=== PATIENT | male | born 1975 | race Caucasian/White ===

== ENCOUNTER 2017-02-09 20:11 | Observation (INO) | payer OTHER ==
[~2017-02-09] VITALS: Ht 177.8 cm; Wt 54.2 kg
[~2017-02-09 20:11] MED LIST: ACCU-CHEK FASTCLIX L XX; AMITRIPTYLIN25 MG PO; ASPIRIN LOW81 M1 PO; CREON12000 UNT PO; GABAPENTIN800 MG PO; LAMICTAL100 MG PO; LEVEMIR1000 UNITS SC; LORTAB 7.5-3251 TAB PO; METFORMIN HCL1000 MG PO; NOVOLOG FLEXPEN SC; ONE TOUCH ULTRA 50 XX; OXYCODONE HCL15 MG PO; PEPCID20 MG PO; TIZANIDINE HCL4 MG PO; ZOFRAN ODT4 MG PO; ZOFRAN4 MG/TAB PO
--- NOTE | 2017-02-09 20:35 | NUR ---
ACCUCHECK COMPLETED, HIGH
--- NOTE | 2017-02-09 20:50 | NUR ---
DR SRINIVASAN AT BEDSIDE.
[2017-02-09 21:31] LABS: URINE BILIRUBIN - DIPSTICK NEGATIVE (NEGATIVE); URINE BLOOD DIPSTICK NEGATIVE (NEGATIVE); URINE CLARITY CLEAR; URINE COLOR YELLOW; URINE GLUCOSE - DIPSTICK >=1000 mg/dL (NEGATIVE); URINE KETONE NEGATIVE (NEGATIVE); URINE LEUK ESTERASE NEGATIVE (NEGATIVE); URINE NITRITE - DIPSTICK NEGATIVE (Negative); URINE PH 5.5 (4.5-8.0); URINE PROTEIN - DIPSTICK NEGATIVE (NEG-TRACE); URINE SPECIFIC GRAVITY <=1.005; URINE UROBILINOGEN - DIPSTICK 0.2 E.U./dL (0.2)
[2017-02-09 21:37] LABS: HEMATOCRIT 36.1 % (39.0-50.0); HEMOGLOBIN 12.5 g/dl (14.0-18.0); IMMATURE GRANULOCYTES 0.9 % (0.0-1.0); MEAN CELL VOLUME 88.9 fL CALC (80.0-100.0); MEAN CORPUSCULAR HGB 30.8 pG CALC (26.0-32.0); MEAN CORPUSCULAR HGB CONC 34.6 g/L CALC (32.0-36.0); NEUT# 2.97 thou/uL (1.82-7.42); RED BLOOD COUNT 4.06 mill/uL (4.70-6.10); RED CELL DISTRI WIDTH 12.9 % (11.5-15.5)
[2017-02-09] MEDS ORDERED: GABAPENTIN800 MG PO (21:52)
[2017-02-09] MEDS ORDERED: LANTUS SOLOSTAR SC (21:54)
[2017-02-09] MEDS ORDERED: HUMALOG100 UNIT/M SC (21:55)
[2017-02-09 21:56] LABS: ALBUMIN 3.4 g/dL (3.2-5.0); ALKALINE PHOSPHATASE 264 u/l (38-126); ANION GAP 18 (6-22 (CALC)); BILIRUBIN, TOTAL 0.3 mg/dL (0.0-1.4); BUN 6 mg/dL (9-20); BUN/CREATININE RATIO 9 (12-20 (CALC)); CALCIUM 8.2 mg/dL (8.4-10.2); CARBON DIOXIDE 18 mmol/l (22-30); CHLORIDE 99 mmol/l (95-108); CREATININE 0.7 mg/dL (0.7-1.3); GFR > 60 ML/MIN (>=60 (CALC)); GFR FOR AFR.AMER. > 60 ML/MIN (>=60 (CALC)); POTASSIUM 3.7 mmol/l (3.5-5.1); SGOT/AST 48 u/l (17-59); SGPT/ALT 61 u/l (21-72); SODIUM 131 mmol/l (137-146); TOTAL PROTEIN 6.4 g/dL (6.3-8.2)
[2017-02-09 22:08] LABS: GLUCOSE 798 mg/dL (75-110)
--- NOTE | 2017-02-09 22:08 | NUR ---
LAB REPORTED GLUCOSE 798, DR SRINIVASAN INFORMED.
--- NOTE | 2017-02-09 23:09 | NUR ---
REPEAT ACCUCHECK 438 DR SRINIVASAN INFORMED.
--- NOTE | 2017-02-10 00:09 | NUR ---
REPORT TO [facility]
[2017-02-10 00:47] VITALS: BP 91/61
--- NOTE | 2017-02-10 00:47 | NUR ---
PT TO RM 289 WITH RN AND DCSO.
--- NOTE | 2017-02-10 00:47 | NUR ---
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
[2017-02-10 03:34] VITALS: BP 95/62
--- NOTE | 2017-02-10 04:28 | NUR ---
PT APPEARS TO BE SLEEPING WITH GUARD AT BEDSIDE;WOKE PT TO ADMINISTER SCHEDULED MEDICATION;ACCUCHECK OF 192 AT THIS TIME;PT DENIES ANY PAIN OR DISCOMFORTS;BED IN LOWEST POSITION WITH CALL LIGHT IN REACH;WILL CONTINUE TO MONITOR
--- NOTE | 2017-02-10 07:00 | NUR ---
REPORT RECIEVED FROM CLAUDY BRAN; PT RESTING IN BED WITH EYES CLOSED; NO S/S OF DISTRESS NOTED; GAURD AT BEDSIDE; CALL LIGHT WITHIN REACH; WILL CONTINUET O MONITOR
[2017-02-10 08:27] LABS: CHOLESTEROL HDL RATIO 4.1 (<4.4 (CALC))
[2017-02-10 08:36] VITALS: BP 101/65
[2017-02-10] MEDS ORDERED: NOVOLOG100 UNIT/M SC (10:11)
[2017-02-10] MEDS ORDERED: LEVEMIR100 UNIT/M SC (10:11)
--- NOTE | 2017-02-10 11:30 | NUR ---
PT RESTING IN BED; NO S/S OF DISTRESS NOTED; MELI AT BEDSIDE; PT BS READING 148; DR DUTTA NOTIFIED AND ORDERS TO HOLD 10 UNITS OF NOVOLOG GIVEN; WILL CONTINUE TO MONITOR
--- NOTE | 2017-02-10 14:57 | NUR ---
Discharge instructions given. Patient verbalizes understanding of same. [facility] All belongings sent with pt.
== END 2017-02-10 14:45 | DRG 638 ==
LOC: ENPENDDIS → ED 20:11 → ED-I 22:50 → ED 23:18 → MS2 23:19
PROVIDERS: Internal Medicine; ADMIT Internal Medicine; ATTEND Internal Medicine
DX: E11.65 Type 2 diabetes mellitus with hyperglycemia (principal); K86.0 Alcohol-induced chronic pancreatitis; E11.40 Type 2 diabetes mellitus with diabetic neuropathy, unspecified; C34.90 Malignant neoplasm of unspecified part of unspecified bronchus or lung; F17.210 Nicotine dependence, cigarettes, uncomplicated; C14.0 Malignant neoplasm of pharynx, unspecified; Z91.14 Patient's other noncompliance with medication regimen; Z79.4 Long term (current) use of insulin
CPT/HCPCS: G0378

== ENCOUNTER 2017-03-30 20:11 | Emergency (ER) | payer OTHER ==
[~2017-03-30] VITALS: Ht 177.8 cm; Wt 54.0 kg
[~2017-03-30 20:11] MED LIST changes: +HUMALOG100 UNIT/M SC; +LANTUS SOLOSTAR SC; +LEVEMIR100 UNIT/M SC; +NOVOLOG100 UNIT/M SC
[2017-03-30] MEDS ORDERED: LANTUS100 UNIT/M SC (20:26)
[2017-03-30] MEDS ORDERED: NOVOLIN R100 UNIT/M SC (20:28)
[2017-03-30 21:18] LABS: HEMATOCRIT 34.8 % (39.0-50.0); HEMOGLOBIN 12.4 g/dl (14.0-18.0); IMMATURE GRANULOCYTES 0.7 % (0.0-1.0); MEAN CELL VOLUME 87.7 fL CALC (80.0-100.0); MEAN CORPUSCULAR HGB 31.2 pG CALC (26.0-32.0); MEAN CORPUSCULAR HGB CONC 35.6 g/L CALC (32.0-36.0); NEUT# 3.64 thou/uL (1.82-7.42); RED BLOOD COUNT 3.97 mill/uL (4.70-6.10); RED CELL DISTRI WIDTH 12.6 % (11.5-15.5)
[2017-03-30 21:30] LABS: ALBUMIN 4.1 g/dL (3.2-5.0); ALKALINE PHOSPHATASE 186 u/l (38-126); ANION GAP 15 (6-22 (CALC)); BILIRUBIN, TOTAL 0.7 mg/dL (0.0-1.4); BUN 9 mg/dL (9-20); BUN/CREATININE RATIO 13 (12-20 (CALC)); CALCIUM 8.9 mg/dL (8.4-10.2); CARBON DIOXIDE 25 mmol/l (22-30); CHLORIDE 95 mmol/l (95-108); CREATININE 0.6 mg/dL (0.7-1.3); GFR > 60 ML/MIN (>=60 (CALC)); GFR FOR AFR.AMER. > 60 ML/MIN (>=60 (CALC)); POTASSIUM 3.6 mmol/l (3.5-5.1); SGOT/AST 30 u/l (17-59); SGPT/ALT 57 u/l (21-72); SODIUM 131 mmol/l (137-146); TOTAL PROTEIN 7.4 g/dL (6.3-8.2)
[2017-03-30 21:32] LABS: GLUCOSE 557 mg/dL (75-110)
[2017-03-30 23:25] VITALS: BP 103/76
== END 2017-03-30 23:24 | DRG 638 ==
LOC: ED 20:11
PROVIDERS: Emergency Medicine
DX: E11.65 Type 2 diabetes mellitus with hyperglycemia (principal); C34.90 Malignant neoplasm of unspecified part of unspecified bronchus or lung; C14.0 Malignant neoplasm of pharynx, unspecified; F17.210 Nicotine dependence, cigarettes, uncomplicated; Z91.14 Patient's other noncompliance with medication regimen; Z79.4 Long term (current) use of insulin

== ENCOUNTER 2017-08-12 15:16 | Observation (INO) | payer OTHER ==
[~2017-08-12] VITALS: Ht 177.8 cm; Wt 48.0 kg
[~2017-08-12 15:16] MED LIST changes: +LANTUS100 UNIT/M SC; +NOVOLIN R100 UNIT/M SC
--- NOTE | 2017-08-12 15:42 | NUR ---
PATIENT AMBULATED TO ROOM WITH STEADY GAIT AND PHYSICIAN AT BEDSIDE FOR EVALUATION
[2017-08-12 16:02] LABS: HEMATOCRIT 37.9 % (39.0-50.0); IMMATURE GRANULOCYTES 0.8 % (0.0-1.0); MEAN CELL VOLUME 89.2 fL CALC (80.0-100.0); MEAN CORPUSCULAR HGB 30.6 pG CALC (26.0-32.0); MEAN CORPUSCULAR HGB CONC 34.3 g/L CALC (32.0-36.0); NEUT# 6.53 thou/uL (1.82-7.42); RED BLOOD COUNT 4.25 mill/uL (4.70-6.10); RED CELL DISTRI WIDTH 12.3 % (11.5-15.5)
--- NOTE | 2017-08-12 16:02 | NUR ---
PATIENT MEDICATED PER MD ORDER. TOLERATING IV WELL. AWAITING RESULTS, CALL LIGHT WITHIN REACH. VISITORS AT BEDSIDE, WILL CONTINUE TO MONITOR.
[2017-08-12 16:29] LABS: ALBUMIN 3.5 g/dL (3.2-5.0); ALKALINE PHOSPHATASE 552 u/l (38-126); ANION GAP 18 (6-22 (CALC)); BILIRUBIN, TOTAL 0.3 mg/dL (0.0-1.4); BUN 6 mg/dL (9-20); BUN/CREATININE RATIO 10 (12-20 (CALC)); CARBON DIOXIDE 23 mmol/l (22-30); CHLORIDE 98 mmol/l (95-108); CREATININE 0.6 mg/dL (0.7-1.3); GFR > 60 ML/MIN (>=60 (CALC)); GFR FOR AFR.AMER. > 60 ML/MIN (>=60 (CALC)); MAGNESIUM 1.7 mg/dL (1.6-2.3); POTASSIUM 4.7 mmol/l (3.5-5.1); SGOT/AST 44 u/l (17-59); SGPT/ALT 48 u/l (21-72); SODIUM 133 mmol/l (137-146); TOTAL PROTEIN 6.8 g/dL (6.3-8.2)
[2017-08-12 16:39] LABS: GLUCOSE 696 mg/dL (75-110)
[2017-08-12 16:43] LABS: MYOGLOBIN 16 ng/mL (0 - 121)
--- NOTE | 2017-08-12 17:14 | NUR ---
SBAR PRINTED TO FLOOR
--- NOTE | 2017-08-12 17:15 | NUR ---
PATIENT RESTING ON STRETCHER WITH IN SIGNS OF DISTRESS, INFORMED ABOUT ADMIT. DISCUSSED WITH SO, VERBAL UNDERSTANDING.
--- NOTE | 2017-08-12 17:17 | NUR ---
PATIENT REPORTS NOT HAVING ANY HOME MEDS FOR APPROX. 2 MONTHS.
--- NOTE | 2017-08-12 17:33 | NUR ---
ATTEMPT MADE TO CALL REPORT NO ANSWER.
[2017-08-12 17:36] LABS: URINE BILIRUBIN - DIPSTICK NEGATIVE (NEGATIVE); URINE BLOOD DIPSTICK NEGATIVE (NEGATIVE); URINE COLOR YELLOW; URINE GLUCOSE - DIPSTICK >=1000 mg/dL (NEGATIVE); URINE KETONE NEGATIVE (NEGATIVE); URINE LEUK ESTERASE NEGATIVE (NEGATIVE); URINE NITRITE - DIPSTICK NEGATIVE (Negative); URINE PROTEIN - DIPSTICK NEGATIVE (NEG-TRACE); URINE UROBILINOGEN - DIPSTICK 0.2 E.U./dL (0.2)
[2017-08-12 17:37] LABS: URINE CLARITY CLEAR
[2017-08-12 17:40] LABS: BARBITURATES NEGATIVE (NEGATIVE); COCAINE NEGATIVE (NEGATIVE); METHADONE NEGATIVE (NEGATIVE); OXCYCODONE NEGATIVE (NEGATIVE); TETRAHYDROCANNABIONOL NEGATIVE (NEGATIVE); TRICYLIC ANTIDEPRESSANTS NEGATIVE (NEGATIVE)
--- NOTE | 2017-08-12 17:49 | NUR ---
SECOND ATTEMPT MADE TO GIVE REPORT, SPOKE TO MARTHA. REPORTS NURSE UNABLE TO TAKE REPORT AT THIS TIME.
--- NOTE | 2017-08-12 18:23 | NUR ---
REPORT GIVEN TO JERMAINE CORNELIUS.
--- NOTE | 2017-08-12 18:30 | NUR ---
PATIENT TRANSPORTED TO [facility] WITH TELE IN PLACE VIA STRETCHER. BEDSIDE REPORT GIVEN TO ASHLI, CARE RELINQUISHED.
--- NOTE | 2017-08-12 18:48 | NUR ---
REPORT RECEIVED FROM SHAMIR NEIL ARRIVED ON UNIT @ 1825, ALERT AND ORIENTED, APPEARS VERY EMACIATED, C/O BEING THIRSTY, ORIENTED TO ROOM AND CALL LUNA, TELE MONITOR IN PLACE, IV CATHETER IN PLACE TO LEFT NECK, SPEECH GARBLED, DENIES PAIN. WILL CONTINUE TO MONITOR AND REPORT TO HS SHIFT.
[2017-08-12 19:15] VITALS: BP 113/78
--- NOTE | 2017-08-12 19:45 | NUR ---
PT RESTING IN BED WITH EYES CLOSED. PT WOKE FOR ASSESSMENT. PT SPEECH IS GARBLED. PT ALERT AND ORIENTED. RESP EVEN AND UNLABORED. NO DISTRESS NOTED. LUNGS CLEAR BILAT, DIMINISHED IN BASES. ABD SOFT, BOWEL SOUNDS PRESENT. TELE IN PLACE. IV LEFT NECK PATENT. PEDAL PULSES PALPATED BILAT. PT STATES GENERALIZED PAIN. NOTIFIED; NEW ORDER RECIEVED. PT REPOSTIONED FOR COMFORT. FREQUENT ROUNDS MADE. CALL LIGHT WITHIN REACH.
--- NOTE | 2017-08-12 20:20 | NUR ---
LORTAB NOT GIVEN. DR CALLED; NEW ORDER RECIEVED. DR NOTIFIED OF BS:[id number]. NEW ORDER RECIEVED.
--- NOTE | 2017-08-12 22:50 | NUR ---
PT STATES HISTORY OF MRSA; 5 YEARS AGO. PRECAUTIONS HUNG. NARE CULTURE OBTAINED;SENT TO LAB.
[2017-08-13] VITALS (7 sets, daily range): BP systolic 95–119; BP diastolic 65–85
--- NOTE | 2017-08-13 00:50 | NUR ---
PT APPEARS TO BE SLEEPING AT THIS TIME WITH EYES CLOSE. NO DISTRESS NOTED. RESP EVEN AND UNLABORED. TELE IN PLACE. CALL LIGHT WITHIN REACH.
--- NOTE | 2017-08-13 04:50 | NUR ---
PT APPEARS TO BE SLEEPING. NO DISTRESS NOTED. TELE IN PLACE. ASSESSMENT UNCHANGED. IV PATENT. CALL LIGHT WITHIN REACH.
--- NOTE | 2017-08-13 05:57 | NUR ---
CIGARETTE SMOKE SMELL IN PT ROOM; STRONGER IN BATHROOM. PT STATES HE DOES SMOKE, BUT DOES NOT HAVE ANY CIGARETTES IN THE ROOM. PT DENIES SMOKING IN THE ROOM. GIFT SHOP MANAGER NOTIFIED OF SITUATION.
[2017-08-13 06:16] LABS: HEMATOCRIT 34.7 % (39.0-50.0); HEMOGLOBIN 11.9 g/dl (14.0-18.0); IMMATURE GRANULOCYTES 0.5 % (0.0-1.0); MEAN CELL VOLUME 89.9 fL CALC (80.0-100.0); MEAN CORPUSCULAR HGB 30.8 pG CALC (26.0-32.0); MEAN CORPUSCULAR HGB CONC 34.3 g/L CALC (32.0-36.0); NEUT# 5.42 thou/uL (1.82-7.42); RED BLOOD COUNT 3.86 mill/uL (4.70-6.10); RED CELL DISTRI WIDTH 12.1 % (11.5-15.5)
[2017-08-13 06:25] LABS: BUN 7 mg/dL (9-20); BUN/CREATININE RATIO 16 (12-20 (CALC)); CALCIUM 8.9 mg/dL (8.4-10.2); CARBON DIOXIDE 24 mmol/l (22-30); CREATININE 0.4 mg/dL (0.7-1.3); GFR > 60 ML/MIN (>=60 (CALC)); GFR FOR AFR.AMER. > 60 ML/MIN (>=60 (CALC)); GLUCOSE 83 mg/dL (75-110); MAGNESIUM 1.6 mg/dL (1.6-2.3); SODIUM 141 mmol/l (137-146)
[2017-08-13 06:31] LABS: ANION GAP 12 (6-22 (CALC)); CHLORIDE 109 mmol/l (95-108)
--- NOTE | 2017-08-13 07:00 | NUR ---
SHIFT CHANGE FROM JACQUELINE, PT SLEEPING BUT AROUSES TO VERBAL STIMULI, FLAT EFFECT AND APPEARS DISINTERESTED, IVF INFUSING, TELE MONITOR IN PLACE, CALL LUNA IN REACH.
--- NOTE | 2017-08-13 08:00 | NUR ---
AMADO FROM ED CALLED, REPORTED ABNORMAL RHYTHM FLUCTUATING FROM 58-160'S BUT REGULAR AND NOT SUSTAINING, PRINTED REPORT SENT TO UNIT, WILL BE NOTIFIED. PT RELAXED AND EATING AT THIS ITME.
--- NOTE | 2017-08-13 09:30 | NUR ---
BLOOD GLUCOSE LEVEL @ 0922 = [phone]
--- NOTE | 2017-08-13 10:13 | NUR ---
ASSESSING PT, OBSERVED LOOSE BANDAID TO RIGHT NECK WHERE WOUND WITH LARGE AMOUNT PURULENT DRAINAGE SEEN, PT SLAPPED AWAY MY HAND AND EXCLAIMED TO LEAVE IT ALONE WHEN I INQUIRED OF PT ABOUT IT. HE STILL HASNT RESPONDED TO MY QUESTION. DR DUTTA AND JACKELINE ROUNDING SAME TIME, I MAINE THEIR ATTENTION TO WOUND, CULTURE ORDERED AND OBTAINED. PT WAS HOSTILE BUT I SPOKE TO HEM REASSURINGLY INFORMING HIM WE ARE NOT HERE TO BE JUDGMENTAL OF HIM BUT TO TREAT HIM ANY OTHER PERSON. HIS DISPOSITION CHANGED THEN AND HE BECAME COOPERATIVE. WOUND WAS CLEANED WITH 0.9 NS AND NEW DRESSING APPLIED. DESCRIPTION OF WOUND MAY BE FOUND IN WOUND DOCUMENTATION SECTION.
--- NOTE | 2017-08-13 10:46 | NUR ---
MARCEL FROM DEPT ADVISED PROCESSING FOR TRANSFER TO [facility] IS IN PROGRESS AT THIS TIME, PT INFORMED.
--- NOTE | 2017-08-13 19:15 | NUR ---
PT RESTING IN BED WATCHING TV. RESP EVEN AND UNLABORED. LUNGS DIMINISHED THROUGHOUT. NO DISTRESS NOTED. TELE IN PLACE. ABD SOFT, BOWEL SOUNDS PRESENT. PEDAL PULSES PALPATED BILAT. IV LEJ PATENT, NO REDNESS OR EDEMA NOTED. BANDAID ON RT SIDE OF NECK, CDI. PT REPOSITIONED FOR COMFORT. FREQUENT ROUNDS MADE. CALL LIGHT WITHIN REACH.
--- NOTE | 2017-08-13 19:51 | NUR ---
REPORT GIVEN TO BRITT CRUZ) AT LOCATED WITHIN [facility], PT HANDED OVER TO YAMILETH PHILLIPS.
--- NOTE | 2017-08-13 22:26 | NUR ---
Discharge instructions given. Patient verbalizes understanding of same. Discharged in stable condition via Medical Transport to [facility]. All belongings sent with pt.
== END 2017-08-13 22:25 | DRG 637 ==
LOC: ED 15:16 → ED-I 16:59 → ED 17:15 → MS2 17:16
PROVIDERS: Emergency Medicine; Nurse Practitioner Family; ADMIT Internal Medicine; ATTEND Internal Medicine
DX: E11.65 Type 2 diabetes mellitus with hyperglycemia (principal); E43 Unspecified severe protein-calorie malnutrition; C79.9 Secondary malignant neoplasm of unspecified site; E11.649 Type 2 diabetes mellitus with hypoglycemia without coma; C14.0 Malignant neoplasm of pharynx, unspecified; K86.0 Alcohol-induced chronic pancreatitis; C34.90 Malignant neoplasm of unspecified part of unspecified bronchus or lung; G89.3 Neoplasm related pain (acute) (chronic); Z68.1 Body mass index [BMI] 19.9 or less, adult; F17.210 Nicotine dependence, cigarettes, uncomplicated; Z79.4 Long term (current) use of insulin; Z91.14 Patient's other noncompliance with medication regimen
CPT/HCPCS: G0378

== ENCOUNTER 2017-11-07 10:49 | Inpatient (IN) | payer OTHER ==
[~2017-11-07] VITALS: Ht 177.8 cm; Wt 48.0 kg
[2017-11-07] VITALS (9 sets, daily range): BP systolic 96–116; BP diastolic 71–83
--- NOTE | 2017-11-07 11:01 | NUR ---
PATIENT TO ROOM VIA EMS AND PHYSICIAN NOTIFIED OF PATIENT STATUS
--- NOTE | 2017-11-07 11:15 | NUR ---
PT ARRIVED WITH EMS IV & 1L NACL STARTED. PT HAS HOARSE VOICE. C/O RIGHT FLANK PAIN. HX OF CANCER. SMOKES 1.5PACKS OF CIGARETTER PER DAY. PT DENIES ALCOHOL USE BUT SMELLS OF ALCOHOL. PT DENIES ABD PAIN. ABD SOFT/NONTENDER. ACTIVE BS. STRONG/EQUAL PULSES, GOOD CAP REFILL. EYES PERRLA. NEUROS INTACT. CARDIAC NSR. LUNG SOUNDS CLEAR ON LEFT, DIMINISHED ON RIGHT. BREATHING IS EVEN/UNLABORED. PT GOING THROUGH SCRATCH OFF TICKETS TO SEE IF HE WON ANYTHING. PT LAYING IN BED, NO S/S OF DISTRESS OBSERVED. PT STATES HIS SUGAR GETS HIGH & "ONLY TAKES INSULIN EVERY ONCE IN A WHILE". ACCUCHECK COMPLETED.
[2017-11-07 11:26] LABS: HEMATOCRIT 38.4 % (39.0-50.0); HEMOGLOBIN 13.2 g/dl (14.0-18.0); IMMATURE GRANULOCYTES 0.4 % (0.0-1.0); MEAN CELL VOLUME 86.1 fL CALC (80.0-100.0); MEAN CORPUSCULAR HGB 29.6 pG CALC (26.0-32.0); MEAN CORPUSCULAR HGB CONC 34.4 g/L CALC (32.0-36.0); NEUT# 7.6 thou/uL (1.82-7.42); RED BLOOD COUNT 4.46 mill/uL (4.70-6.10); RED CELL DISTRI WIDTH 12.7 % (11.5-15.5)
[2017-11-07 11:42] LABS: ALBUMIN 4.1 g/dL (3.2-5.0); ALKALINE PHOSPHATASE 403 u/l (38-126); BILIRUBIN, TOTAL 0.5 mg/dL (0.0-1.4); BUN 20 mg/dL (9-20); BUN/CREATININE RATIO 35 (12-20 (CALC)); CARBON DIOXIDE 23 mmol/l (22-30); CREATININE 0.6 mg/dL (0.7-1.3); GFR > 60 ML/MIN (>=60 (CALC)); GFR FOR AFR.AMER. > 60 ML/MIN (>=60 (CALC)); LIPASE 52 u/l (23-300); POTASSIUM 4.8 mmol/l (3.5-5.1); SGOT/AST 51 u/l (17-59); SGPT/ALT 76 u/l (21-72); TOTAL PROTEIN 8.1 g/dL (6.3-8.2)
[2017-11-07 11:43] LABS: ANION GAP 23 (6-22 (CALC)); CHLORIDE 91 mmol/l (95-108); SODIUM 132 mmol/l (137-146)
--- NOTE | 2017-11-07 12:16 | NUR ---
PATIENT RESTING AWAITING LAB AND RADIOLOGY RESULTS
--- NOTE | 2017-11-07 12:20 | NUR ---
PHARM CALLED FOR INSULIN DRIP.
--- NOTE | 2017-11-07 12:33 | NUR ---
DIFFICULTY ESTABLISHING A 2ND IV. PTS VEINS ARE VERY HARD. CHARGE NURSE ATTEMPTING.
--- NOTE | 2017-11-07 12:50 | NUR ---
2ND IV ESTABLISHED IN RAC. INSULIN DRIP & LR STARTED. MD IN ROOM DISCUSSING TEST RESULTS & POC. PT ACKNOWLEDGES ADMIT.
--- NOTE | 2017-11-07 13:04 | NUR ---
PT UNCOOPERATIVE WHEN TRYING TO DO AN EKG. PT PLAYING WITH HIS SCRATCH OFF LOTTO, REFUSING TO LAY REQUESTED. AWARE.
--- NOTE | 2017-11-07 13:09 | NUR ---
SBAR PRINTED TO FLOOR
--- NOTE | 2017-11-07 13:23 | NUR ---
RECVING JERMAINE MALDONADO.
--- NOTE | 2017-11-07 13:24 | NUR ---
PT HAS NOT BEEN ABLE TO GIVE A URINE SAMPLE SINCE ARRIVAL.
--- NOTE | 2017-11-07 13:49 | NUR ---
Admission Note Report Given to: CINDY Transported by: Wheelchair X Stretcher Transported with: X Nurse Transporter X Patent IV O2 X Background Check Coordinator ICU 8
--- NOTE | 2017-11-07 14:00 | NUR ---
PT ADMITTED TO ICU BED 8 VIA STRETCHER, PT STOOD OFF STRECTHER AND ONTO STANDING SCALE WEIGHT OBTAINED, THEN INTO BED, ADMISSION ASSESSMENT COMPLETED, PT DIFFICULT TO UNDERSTAND AT TIMES RELATED TO SPEAKS VERY SOFTLY WITH MINIMAL LIP MOVEMENT, PT STATES HE HAS A HARD TIME SPEAKING LOUDLY RELATED TO THROAT CANCER, LUNGS CLEAR WITH NO SHORTNESS OF BREATH OR DISTRESS NOTED, PULSE OX 99% ON ROOM AIR, STATES HE HAS O2 AT HOME BUT DECLINES USAGE, PT IS VERY THIN AND CACHEXIC LOOKING, ABD SOFT AND BOWEL SOUNDS ACTIVE PT STATES LAST BM THIS AM, NO EDEMA NOTED PT IS 5"10 STATED HEIGHT AND 106 lbs. SKIN WARM DRY AND INTACT PT HAS 1IN NUDULE NOTED TO LEFT CHEEK NEAR NOSE. NO REDNESS OR DRAINAGE NOTED FROM SITE, 20G IV ACCESS IN RAC WITH IVF AND INSULIN GTT, PT ADMITS TO BEING NON COMPLIANT WITH DIABETES AT HOME ALSO STATES THAT HE HAS LUNG CANCER AND THROAT CANCER WITH NO TREATMENT, ORIENTED TO ROOM AND UNIT, ALL MONITORIG EQUIPMENT EXPLAINED PRIOR TO APPLICATION, PT ALSO AWARE OF NEED FOR HOURLY ACCU CHECKS RELATED TO INSULIN GTT. CALL LUNA WITHIN REACH, SAFETY MEASURES INTRODUCED, WILL CONTINUE TO MONITOR.
--- NOTE | 2017-11-07 14:18 | NUR ---
PT TRANSPORTED TO ICU #8 BY STRETCHER IN STABLE CONDITINO. PT AMBULATED TO SCALE THEN BED. PTS R A/C IV WAS CRIMPED UPON ARRIVAL BUT WAS SAVABLE.
--- NOTE | 2017-11-07 14:45 | NUR ---
LINENS CHANGED RELATED TO PT SPILLED WATER IN BED, CALL LUNA WITHIN REACH
--- NOTE | 2017-11-07 15:16 | NUR ---
INSULIN GTT PLACED ON HOLD RELATED TO BS 153 AFTER 1 HR ON AND PT NPO, CALL LUNA WITHIN REACH, AWAITING MD ROUND FOR FURTHER ORDERS.
--- NOTE | 2017-11-07 16:37 | NUR ---
PT DOZING INTERMITTENLY AND WATCHING TELEVISION, OFFERS NO NEW COMPLAINTS OTHER THAN TO ASK FOR FOOD, EDUCATED REGARDIGN NPO STATUS AND WILL DISCUSS DIET DURING MD ROUNDS
--- NOTE | 2017-11-07 16:54 | NUR ---
BLADDER SCAN PERFORMED WITH >999 mL NOTED, PT VOIDS 625 ml AND POST VOID RESIDUAL WAS 367 ML, ON UNIT.
--- NOTE | 2017-11-07 17:56 | NUR ---
PT REQUESTING MEDICATION FOR PAIN, AWARE AND NEW ORDERS REC'D WILL MEDICATE ORDERED.
--- NOTE | 2017-11-07 18:05 | NUR ---
MEDICATED FOR PAIN ORDERED, OOB TO [facility] WITH STAND BY ASSIST
--- NOTE | 2017-11-07 18:19 | NUR ---
PT OOB TO [facility] STAND BY ASSIST, CONTINENT OF VERY LARGE FORMED PALE GUERRERO STOOL, PROVIDED OWN MANDO CARE AND BACK TO BED, WARM BLANKETS APPLIED PER PT REQUEST FOR COMFORT, CALL LUNA WITHIN REACH, TOLERATING DIET WITH INTAKE NOTED TO BE OF SOFT FOODS, WILL CONTINUE TO MONITOR
[2017-11-07 18:38] LABS: URINE BILIRUBIN - DIPSTICK NEGATIVE (NEGATIVE); URINE BLOOD DIPSTICK NEGATIVE (NEGATIVE); URINE COLOR YELLOW; URINE GLUCOSE - DIPSTICK >=1000 mg/dL (NEGATIVE); URINE KETONE TRACE mg/dL (NEGATIVE); URINE LEUK ESTERASE NEGATIVE (NEGATIVE); URINE NITRITE - DIPSTICK NEGATIVE (Negative); URINE PROTEIN - DIPSTICK NEGATIVE (NEG-TRACE); URINE UROBILINOGEN - DIPSTICK 0.2 E.U./dL (0.2)
[2017-11-07 18:42] LABS: URINE CLARITY CLEAR
--- NOTE | 2017-11-07 19:30 | NUR ---
difficult to fully arouse. no apparent pain. pt is extremely emaciated. teletypesetter monitor shows sinus rhythm inverted p waves. #20 rac ns infusing @ 200cchr. voids per urinal. fall precautions cont.
--- NOTE | 2017-11-07 20:40 | NUR ---
to ct per wc.
--- NOTE | 2017-11-07 21:10 | NUR ---
returned from ct. amb to br x1 assist then to bed. lance well. requested pain med to be brought to him when due. instructed pt to call this sql report writer when due. pt verbalized understanding. snack given per request.
--- NOTE | 2017-11-07 22:00 | NUR ---
eyes closed. no distress.
[2017-11-08] VITALS (16 sets, daily range): BP systolic 84–131; BP diastolic 56–80
--- NOTE | 2017-11-08 00:01 | NUR ---
eyes closed. no distress. patient monitor shows sinus rhythm inverted p waves.
--- NOTE | 2017-11-08 02:00 | NUR ---
eyes closed. no distress. remote medical coder shows sinus rhythm inverted p wave.
--- NOTE | 2017-11-08 04:00 | NUR ---
eyes closed. no apparent distress. quality assurance monitor final shows sinus rhythm inverted p waves freq runs of pacs.
--- NOTE | 2017-11-08 06:00 | NUR ---
lab here. blood drawn. pt requested coffee & pain meds. entered pts room with coffee & he is sleep. will wait on pain meds until awake.
[2017-11-08 06:25] LABS: HEMOGLOBIN 13.5 g/dl (14.0-18.0); IMMATURE GRANULOCYTES 0.5 % (0.0-1.0); MEAN CELL VOLUME 88.1 fL CALC (80.0-100.0); MEAN CORPUSCULAR HGB 29.7 pG CALC (26.0-32.0); MEAN CORPUSCULAR HGB CONC 33.8 g/L CALC (32.0-36.0); NEUT# 5.58 thou/uL (1.82-7.42); RED BLOOD COUNT 4.54 mill/uL (4.70-6.10); RED CELL DISTRI WIDTH 13.1 % (11.5-15.5)
[2017-11-08 06:40] LABS: ALBUMIN 3.4 g/dL (3.2-5.0); ALKALINE PHOSPHATASE 361 u/l (38-126); ANION GAP 16 (6-22 (CALC)); BILIRUBIN, TOTAL 0.4 mg/dL (0.0-1.4); BUN 13 mg/dL (9-20); BUN/CREATININE RATIO 25 (12-20 (CALC)); CARBON DIOXIDE 26 mmol/l (22-30); CHLORIDE 100 mmol/l (95-108); CREATININE 0.5 mg/dL (0.7-1.3); GFR > 60 ML/MIN (>=60 (CALC)); GFR FOR AFR.AMER. > 60 ML/MIN (>=60 (CALC)); POTASSIUM 4.7 mmol/l (3.5-5.1); SGOT/AST 85 u/l (17-59); SGPT/ALT 70 u/l (21-72); SODIUM 137 mmol/l (137-146)
--- NOTE | 2017-11-08 07:20 | NUR ---
PT RESTING IN BED, AROUSES TO VERBAL STIMULI, STATES HE WOULD LIKE SOME COFFEE AND THAT HE IS "IN A LOT OF PAIN", AM ASSESSMENT COMPLETED SEE INTERVENTIONS, PT REMAINS DIFFICULT TO UNDERSTAND AT TIMES RELATED TO SPEAKS VERY SOFTLY WITH MINIMAL LIP MOVEMENT, BUT ABLE TO COMMUNICATE AND MAKE NEEDS KNOWN. LUNGS REMAIN CLEAR WITH NO SHORTNESS OF BREATH OR DISTRESS NOTED, PULSE OX 99% ON ROOM AIR, REMAINS VERY THIN AND CACHEXIC LOOKING, BUT APPETITE GOOD WITH GOOD INTAKE NOTED LAST PM PER REPORT, ABD SOFT AND BOWEL SOUNDS ACTIVE PT HAD VERY LARGE BM LAST PM, NO EDEMA NOTED SKIN WARM DRY AND INTACT, 1 IN NODULE NOTED TO LEFT CHEEK NEAR NOSE REMAINS UNCHANGED. 20G IV ACCESS IN RAC SALINE LOCKED REMINDED OF ACCU CHECK SCHEDULE AND PAIN CONTROL DISCUSSED, CALL LUNA WITHIN REACH, SAFETY MEASURES REINFORCED, WILL CONTINUE TO MONITOR.
--- NOTE | 2017-11-08 08:00 | NUR ---
SET UP ASSIST PROVIDED FOR AM MEAL, ACCU CHECK COVERAGE GIVEN ORDERED, MEDICATED FOR PAIN, CALL LUNA WITHIN REACH
--- NOTE | 2017-11-08 09:08 | NUR ---
PT DOZING, TELE READING SR SVT BRUSTS NOTED AT THIS TIME, WILL CONTINUE TO MONITOR.
--- NOTE | 2017-11-08 10:03 | NUR ---
PT DOZING INTERMITTENLY, APPETITE GOOD, PAIN CONTROLLED SINCE MEDICATED, CALL LUNA WITHIN REACH
--- NOTE | 2017-11-08 11:17 | NUR ---
Accu check coverage given as ordered, Pt requesting pain medication, educated regarding medication schedule, call coreas within reach
--- NOTE | 2017-11-08 12:25 | NUR ---
PT RESTING MEDICATED FRO COMPLAINTS OF GENERALIZED (MAINLY TOROS BELLY AND BACK) PAIN, APPETITE GOOD WITH 100% OF MEAL INTAKE NOTED, TAKES PO FLUID WELL WELL, CALL LUNA WITHIN REACH
--- NOTE | 2017-11-08 13:42 | NUR ---
PT APPETITE GOOD EATING 100% OF MEALS AN ASKING FOR SNACKS, DIET RESTRICTIONS ADDRESSED, PT VERBAIZES UNDERSTANDING, MEDICATED EARLIER FRO PAIN WITH GOOD RELIEF, CALL LUNA WITHIN REACH
--- NOTE | 2017-11-08 14:27 | NUR ---
ANDREW TOBI INTO SEE PATIENT
--- NOTE | 2017-11-08 15:45 | NUR ---
ANDREW BRITTON AWARE OF ARRHYTHMIAS
[2017-11-08 15:53] LABS: HEMATOCRIT 40.6 % (39.0-50.0); HEMOGLOBIN 13.6 g/dl (14.0-18.0); MEAN CELL VOLUME 88.6 fL CALC (80.0-100.0); MEAN CORPUSCULAR HGB 29.7 pG CALC (26.0-32.0); MEAN CORPUSCULAR HGB CONC 33.5 g/L CALC (32.0-36.0); RED BLOOD COUNT 4.58 mill/uL (4.70-6.10); RED CELL DISTRI WIDTH 13.4 % (11.5-15.5)
--- NOTE | 2017-11-08 16:15 | NUR ---
HOSPICE CALLED, HISTORY PROVIDED, EXPECT EVELYN DEAN FROM HOSPICE TOMORROW AT 1130AM, PT NOTIFIED
--- NOTE | 2017-11-08 16:55 | NUR ---
PT MEDICATED FOR COMPLAINTS OF PAIN, EDUCATED REGARDING FENTANYL PATCH AND APPLIED TO R SHOULDER, ALSO MEDICATED FRO BLOOD SUGAR OF 227 AND WITH PRN OXYCODONE WELL, PT VOIDS USING URINAL; EDUCATED REGARDING NEED TO RE CHECK PVR AFTER NEXT VOID AND TO NOTIFY STAFF WHEN COMPLETE, PT VERBALIZES UNDERSTANDING, SUPPLIED WITH SUGAR FREE PUDDING REQUESTED, WILL CONTINUE TO MONITOR.
--- NOTE | 2017-11-08 17:42 | NUR ---
SET UP ASSIST PROVIDED FOR PM MEAL, CALL LUNA WITHIN REACH, INSULIN COVERAGE GIVEN ORDERED, WILL CONTINUE TO MONITOR
--- NOTE | 2017-11-08 19:00 | NUR ---
c/o "itching all over." no rash or hives seen. dr kumari notified.
--- NOTE | 2017-11-08 19:30 | NUR ---
sitting on side of bed scratching. no rash/hives seen. monitoring coordinator shows sinus tach. #20 rac saline lock. po fluids taken well. voids per urinal. fall precautions cont.
--- NOTE | 2017-11-08 21:15 | NUR ---
speech slurred. no further itching. c/o pain. roxicodone 15mg po given. snacks given per request.
--- NOTE | 2017-11-08 22:00 | NUR ---
no further c/o voiced.
[2017-11-09 00:01] VITALS: BP 112/86
--- NOTE | 2017-11-09 00:01 | NUR ---
eyes closed. no distress. case monitor shows sinus rhythm.
[2017-11-09 02:00] VITALS: BP 109/80
--- NOTE | 2017-11-09 02:00 | NUR ---
resting quietly. resps even & unlabored. no apparent distress.
[2017-11-09 04:00] VITALS: BP 122/78
--- NOTE | 2017-11-09 04:00 | NUR ---
eyes closed. no distress. color television console monitor shows sinus rhythm.
--- NOTE | 2017-11-09 05:00 | NUR ---
lab here. blood drawn.
[2017-11-09 05:17] LABS: HEMATOCRIT 40.1 % (39.0-50.0); HEMOGLOBIN 13.2 g/dl (14.0-18.0); IMMATURE GRANULOCYTES 0.5 % (0.0-1.0); MEAN CELL VOLUME 90.1 fL CALC (80.0-100.0); MEAN CORPUSCULAR HGB 29.7 pG CALC (26.0-32.0); MEAN CORPUSCULAR HGB CONC 32.9 g/L CALC (32.0-36.0); NEUT# 10.21 thou/uL (1.82-7.42); RED BLOOD COUNT 4.45 mill/uL (4.70-6.10); RED CELL DISTRI WIDTH 13.3 % (11.5-15.5)
[2017-11-09 05:48] LABS: ALBUMIN 3.5 g/dL (3.2-5.0); ALKALINE PHOSPHATASE 370 u/l (38-126); ANION GAP 18 (6-22 (CALC)); BILIRUBIN, TOTAL 0.4 mg/dL (0.0-1.4); BUN 18 mg/dL (9-20); BUN/CREATININE RATIO 33 (12-20 (CALC)); CARBON DIOXIDE 25 mmol/l (22-30); CHLORIDE 100 mmol/l (95-108); CREATININE 0.6 mg/dL (0.7-1.3); GFR > 60 ML/MIN (>=60 (CALC)); GFR FOR AFR.AMER. > 60 ML/MIN (>=60 (CALC)); POTASSIUM 4.6 mmol/l (3.5-5.1); SGOT/AST 60 u/l (17-59); SGPT/ALT 70 u/l (21-72); SODIUM 138 mmol/l (137-146); TOTAL PROTEIN 7.2 g/dL (6.3-8.2)
--- NOTE | 2017-11-09 07:15 | NUR ---
PT LAYING IN BED RESTING WITH EYES CLOSED, AROUSES EASILY TO VERBAL STIMULI AND DOZES QUICKLY, PT DENIES ANY PAIN AT THIS TIME, PT ORIENTED X 3, PERRL, PT IS SHORT WITH STAFF WHEN ASKED QUESTIONS, HR 88. RESP. 20, BP 100/68, O2 96% ON RA, LUNG SOUNDS CLEAR IN ALL WELLS, STRONG RADIAL & PEDAL PULSES, AM ASSESSMENT COMPLETE, SEE INTERVENTIONS, SAFETY MEASURES REINFORCED, CALL LUNA WITHIN REACH
--- NOTE | 2017-11-09 07:30 | NUR ---
PT REMAINS DROWSY, SETUP ASSISTANCE PROVIDED WITH AM MEAL
[2017-11-09 08:00] VITALS: BP 100/68
--- NOTE | 2017-11-09 08:15 | NUR ---
PT LAYING IN BED RESTING WITH EYES CLOSED, AROUSES EASILY TO VERBAL STIMULI, DOZES QUICKLY, REMINDED TO CALL FOR ASSISTANCE, CALL LUNA WITHIN REACH
--- NOTE | 2017-11-09 09:45 | NUR ---
PT SITTING IN CHAIR AT THE SIDE OF THE BED, PT STATES "I'M HURTING ALL OVER", PT ASSISTED WITH REPOSITIONING FOR COMFORT, REMINDED TO CALL FOR ASSISTANCE, CALL LUNA WITHIN REACH
[2017-11-09 10:00] VITALS: BP 88/70
--- NOTE | 2017-11-09 10:20 | NUR ---
PT IS RESTLESS, STANDING AT THE SIDE OF THE BED THEN SITTING IN THE CHAIR, OFFERED TO ASSIST PT WITH GETTING MORE COMFORTABLE, CALL LUNA WITHIN REACH
--- NOTE | 2017-11-09 10:35 | NUR ---
PT PULLING EQUIPMENT OFF, REFUSING TO ALLOW STAFF TO REAPPLY
--- NOTE | 2017-11-09 11:10 | NUR ---
VISITORS AT BEDSIDE
--- NOTE | 2017-11-09 11:25 | NUR ---
PT RECONNECTED TO MONITORING EQUIPMENT, SITTING UP IN BED, TOLERATING WELL, SETUP ASSISTANCE PROVIDED WITH AM MEAL, REMINDED TO CALL FOR ASSISTACE, CALL LUNA WITHIN REACH
--- NOTE | 2017-11-09 11:42 | NUR ---
EVELYN FROM HOSPICE AT BEDSIDE
[2017-11-09 12:00] VITALS: BP 106/67
--- NOTE | 2017-11-09 12:05 | NUR ---
PT SITTING UP IN BED TALKING TO VISITOR WHO IS BEDSIDE, PT VERBALIZES NO COMPLAINTS, REMINDED TO CALL FOR ASSISTANCE, CALL LUNA WITHIN REACH
[2017-11-09] MEDS ORDERED: NOVOLIN 70/30 SC (12:41)
--- NOTE | 2017-11-09 14:20 | NUR ---
PT LAYING IN BED RESTING WITH EYES CLOSED, AROUSES EASILY TO VERBAL STIMULI, MOITORING EQUIPMENT OFF AT THIS TIME, CALL LUNA WITHIN REACH
--- NOTE | 2017-11-09 16:05 | NUR ---
Discharge instructions given. Patient verbalizes understanding of same. Discharged in stable condition via Wheelchair to Home with Hospice. All belongings sent with pt.
== END 2017-11-09 15:55 | disposition hospice, home (50) | DRG 637 ==
LOC: ED 10:49 → ED-I 12:58 → ED 13:11 → ICU 13:12
PROVIDERS: Family Medicine; Nurse Practitioner Family; ADMIT Hospitalist; ATTEND Hospitalist
DX: E11.65 Type 2 diabetes mellitus with hyperglycemia (principal); E43 Unspecified severe protein-calorie malnutrition; R64 Cachexia; C15.9 Malignant neoplasm of esophagus, unspecified; K86.0 Alcohol-induced chronic pancreatitis; C79.51 Secondary malignant neoplasm of bone; E87.1 Hypo-osmolality and hyponatremia; C34.90 Malignant neoplasm of unspecified part of unspecified bronchus or lung; Z68.1 Body mass index [BMI] 19.9 or less, adult; C25.9 Malignant neoplasm of pancreas, unspecified; K59.00 Constipation, unspecified; F17.210 Nicotine dependence, cigarettes, uncomplicated; R33.9 Retention of urine, unspecified; G89.3 Neoplasm related pain (acute) (chronic); Z79.4 Long term (current) use of insulin; Z91.14 Patient's other noncompliance with medication regimen
CPT/HCPCS: Q9967